=== PATIENT | female | born 1985 | race Caucasian/White ===

== ENCOUNTER → 2023-09-10 11:50 | Outpatient (REF) | payer BC, SELFPAY | LOC: HWRAD 11:50 | PROVIDERS: ATTENDING PHYSICIAN Nurse Practitioner Family | DX: R20.2 Paresthesia of skin (principal); M54.2 Cervicalgia | CPT/HCPCS: 72050 ==

== ENCOUNTER → 2023-09-26 10:46 | Outpatient (REF) | payer BC, SELFPAY | LOC: HWRAD 10:46 | PROVIDERS: ATTENDING PHYSICIAN Nurse Practitioner Family | DX: E04.1 Nontoxic single thyroid nodule (principal) | CPT/HCPCS: 76536 ==